=== PATIENT | male | born 1975 | race Native Hawaiian/Other Pacific Islander ===

== ENCOUNTER 2016-08-27 11:17 | Emergency (ER) | payer BC ==
[2016-08-27 11:18] VITALS: BMI 31.6
[2016-08-27 11:36] VITALS: BP 137/86; PULSE 83; RESP 18; TEMP 98.2; O2SAT 97
--- NOTE | 2016-08-27 11:41 | ED PDOC ---
Arrival/HPI - General Historian: Patient - General Chief Complaint: Lower Extremity Problem/Injury Time Seen by Provider: 08/27/16 11:38 - History of Present Illness Narrative History of Present Illness (Text): 08/27/16 11:39 41yo male who present with complaint of right ankle pain s/p trauma an hour ago. States he stepped on uneven sidewalk and twisted his ankle. States he heard a pop when he twisted his ankle. Walking with a limp. did not take any medication. Denies any other complaint. (Arturo,Rod A) Past Medical History - Provider Review Nursing Documentation Reviewed: Yes - Infectious Disease Hx of Infectious Diseases: None - Tetanus Immunization Tetanus Immunization: Unknown - Past Medical History Past Medical History: No Previous - Psychiatric Hx Depression: No Hx Emotional Abuse: No Hx Physical Abuse: No Hx Substance Use: No - Past Surgical History Past Surgical History: No Previous - Surgical History Other/Comment: Neck surgery 2015 - Suicidal Assessment Feels Threatened In Home Enviroment: No Family/Social History - Physician Review Nursing Documentation Reviewed: Yes Family/Social History: Unknown Family HX Smoking Status: Heavy Smoker > 10 Cigarettes Daily Hx Alcohol Use: No Hx Substance Use: No Hx Substance Use Treatment: No Allergies/Home Meds Allergies/Adverse Reactions: Allergies ampicillin Allergy (Verified 08/27/16 11:36) RASH Home Medications: Home Meds Medication Instructions Recorded Confirmed Acetaminophen/Butalbital/Caf 1 tab PO 01/03/13 01/03/13 [Fioricet] Review of Systems - Physician Review All systems were reviewed & negative as marked: Yes - Review of Systems Constitutional: Normal Eyes: Normal ENT: Normal Respiratory: Normal Cardiovascular: Normal Gastrointestinal: Normal Genitourinary Male: Normal Musculoskeletal: Arthralgias (right ankle) Skin: Normal Neurological: Normal Endocrine: Normal Hemo/Lymphatic: Normal Psychiatric: Normal Physical Exam Vital Signs Reviewed: Yes Temperature: Afebrile Blood Pressure: Normal Pulse: Regular Respiratory Rate: Normal Appearance: Positive for: Well-Appearing, Non-Toxic, Comfortable Pain Distress: None Mental Status: Positive for: Alert and Oriented X 3 - Systems Exam Head: Present: Atraumatic, Normocephalic Pupils: Present: PERRL Extroacular Muscles: Present: EOMI Conjunctiva: Present: Normal Mouth: Present: Moist Mucous Membranes Neck: Present: Normal Range of Motion Respiratory/Chest: Present: Clear to Auscultation, Good Air Exchange. No: Respiratory Distress, Accessory Muscle Use Cardiovascular: Present: Regular Rate and Rhythm, Normal S1, S2. No: Murmurs Abdomen: Present: Normal Bowel Sounds. No: Tenderness, Distention, Peritoneal Signs Back: Present: Normal Inspection Upper Extremity: Present: Normal Inspection. No: Cyanosis, Edema Lower Extremity: Present: Normal Inspection, NORMAL PULSES, Normal ROM, Tenderness (Over lateral malleolus), Swelling (Over lateral malleolus), Neurovascularly Intact, Capillary Refill < 2 s. No: Edema, CALF TENDERNESS, Erythema, Deformity, Temperature Abnormalties Neurological: Present: GCS=15, CN II-XII Intact, Speech Normal Skin: Present: Warm, Dry, Normal Color. No: Rashes Psychiatric: Present: Alert, Oriented x 3, Normal Insight, Normal Concentration Vital Signs Temp Pulse Resp BP Pulse Ox 08/27/16 11:32 98.2 F 83 18 137/86 97 Medical Decision Making ED Course and Treatment: 08/27/16 12:29 Right ankle xray - No acute fracture/dislocation noted Derek wrap placed. Crutches given. Advised to RICE ankle. Referred to ortho. TRT ED for any new or worsening symptoms (Rod Morris) I was available for consultation during PA evaluation. The chart was reviewed by me, and I agree with disposition. The documented history was done by the physician cushion former. The documented physical exam was done by the physician cushion former. The documented procedures were done by the physician cushion former. ( James Little) - RAD Interpretation Radiology Orders: 08/27/16 11:38 ANKLE RIGHT 3 VIEWS ROUTINE [RAD] Stat - Medication Orders Current Medication Orders: Discontinued Medications Ibuprofen (Motrin Tab) 600 mg PO STAT STA Stop: 08/27/16 11:39 Last Admin: 08/27/16 11:50 Dose: 600 MG Disposition/Present on Arrival - Present on Arrival Any Indicators Present on Arrival: No History of DVT/PE: No History of Uncontrolled Diabetes: No Urinary Catheter: No History of Decub. Ulcer: No History Surgical Site Infection Following: None - Disposition Have Diagnosis and Disposition been Completed?: Yes Disposition Time: 12:15 Patient Plan: Discharge - Disposition Diagnosis: Ankle sprain Disposition: HOME/ ROUTINE Condition: STABLE Discharge Instructions (ExitCare): Ankle Sprain (ED) Additional Instructions: Rest, ice, compress and elevate ankle Follow up with your doctor/orthopedist Return to ED for any new or worsening symptoms Prescriptions: Ibuprofen [Motrin Tab] 600 mg PO Q6 #20 tab Referrals: Pedro Luis Mariscal MD [Primary Care Provider] - Follow up with primary Nki Ridley III, MD [Medical Doctor] - Follow up with primary Forms: WORK NOTE
--- NOTE | 2016-08-27 13:01 | RAD ---
PROCEDURE: Right Ankle Radiographs. HISTORY: ankle pain s/p trauma COMPARISON: None FINDINGS: BONES: Normal. No fracture. JOINTS: Normal. No osteoarthritis. Ankle mortise maintained. Talar dome intact SOFT TISSUES: Normal. OTHER FINDINGS: None. IMPRESSION: Normal right ankle radiographs.
== END 2016-08-27 12:40 | disposition home or self-care (01) ==
LOC: ED 11:17
DX: S93.401A Sprain of unspecified ligament of right ankle, initial encounter (principal); X50.0XXA Overexertion from strenuous movement or load, initial encounter; Y92.480 Sidewalk as the place of occurrence of the external cause